=== PATIENT | male | born 1975 | race Caucasian/White ===

== ENCOUNTER 2021-09-20 09:33 | Inpatient (IN) | payer SELFPAY ==
[2021-09-20] MEDS ORDERED: Sodium Chloride 0.9% 10 ML Syringe FLUSH PRN (10:10)
[2021-09-20] MEDS ORDERED: ceFAZolin 2 GM in Sodium Chloride 0.9% 50 ML IV ONE (10:12)
[2021-09-20] MEDS ORDERED: HYDROmorphone 0.5 MG/0.5 ML Syringe IVPUSH ONE ×2 (10:15→12:03)
[2021-09-20] MEDS ORDERED: Vancomycin 2 GM in Sodium Chloride 0.9% 500 ML IV ONE (10:43)
[2021-09-20] MEDS ORDERED: Acetaminophen 325 MG Tab PO PRN (13:41)
[2021-09-20] MEDS ORDERED: Polyethylene Glycol 3350 Powder 17 GM Packet PO PRN (13:41)
[2021-09-20] MEDS ORDERED: Ondansetron 4 MG/2 ML SDV IV PRN (13:41)
[2021-09-20] MEDS ORDERED: Nicotine Polacrilex 2 MG Gum CHEW PRN (13:43)
[2021-09-20] MEDS: Heparin Sodium 5,000 Units/ML Vial SUBCUT SCH ×2 (14:08→21:44)
[2021-09-20] MEDS: oxyCODONE 5 MG Tab PO PRN ×2 (14:08→21:46)
[2021-09-20] MEDS: NS + KCl 20mEq/L 1,000 ML IV SCH (14:10)
[2021-09-20] MEDS: Nicotine 14 MG/24 Hr Patch TRDERM SCH (14:16)
[2021-09-20] MEDS: Acetaminophen 325 MG Tab PO SCH ×2 (15:50→21:47)
[2021-09-20] MEDS ORDERED: Vancomycin 1 GM, Vancomycin 500 MG in Sodium Chloride 0.9% 500 ML IV SCH (22:00)
[2021-09-21] MEDS: NS + KCl 20mEq/L 1,000 ML IV SCH (04:25)
[2021-09-21] MEDS: oxyCODONE 5 MG Tab PO PRN ×2 (04:31→21:48)
[2021-09-21] MEDS: Heparin Sodium 5,000 Units/ML Vial SUBCUT SCH ×4 (04:32→21:41)
[2021-09-21] MEDS: Nicotine 14 MG/24 Hr Patch TRDERM SCH (09:39)
[2021-09-21] MEDS: Acetaminophen 325 MG Tab PO SCH ×3 (09:39→21:40)
[2021-09-21] MEDS ORDERED: Aluminum Hydroxide/Magnesium Hydroxide/Simethicone Susp 30 ML Cup PO ONE (12:50)
[2021-09-21] MEDS ORDERED: Vancomycin 1 GM, Vancomycin 500 MG in Sodium Chloride 0.9% 500 ML IV SCH (22:00)
[2021-09-22] MEDS: Heparin Sodium 5,000 Units/ML Vial SUBCUT SCH ×3 (05:26→22:07)
[2021-09-22 06:18] LABS: ESTIMATED GFR > 60 mL/min (>60)
[2021-09-22] MEDS: Acetaminophen 325 MG Tab PO SCH ×3 (08:05→22:05)
[2021-09-22] MEDS: Nicotine 14 MG/24 Hr Patch TRDERM SCH (08:05)
[2021-09-22] MEDS: oxyCODONE 5 MG Tab PO PRN ×2 (08:15→22:04)
[2021-09-22] MEDS ORDERED: Vancomycin 1 GM, Vancomycin 500 MG in Sodium Chloride 0.9% 500 ML IV ONE (21:45)
[2021-09-22] MEDS ORDERED: Vancomycin 250 MG in Sodium Chloride 0.9% 100 ML IV ONE (23:00)
[2021-09-23 06:30] LABS: ESTIMATED GFR > 60 mL/min (>60)
[2021-09-23] MEDS: Heparin Sodium 5,000 Units/ML Vial SUBCUT SCH (06:33)
[2021-09-23] MEDS: Acetaminophen 325 MG Tab PO SCH (08:52)
[2021-09-23] MEDS: Nicotine 14 MG/24 Hr Patch TRDERM SCH (08:53)
[2021-09-23] MEDS ORDERED: Vancomycin 1.75 GM in Sodium Chloride 0.9% 500 ML IV SCH (22:00)
== END 2021-09-23 12:40 | disposition home or self-care (01) | DRG 603 ==
LOC: JD.ED 09:33 → JD.MS 13:37
PROVIDERS: ADMIT Emergency Medicine; ATTEND Internal Medicine
DX: L03.116 Cellulitis of left lower limb (principal); N17.9 Acute kidney failure, unspecified; N18.9 Chronic kidney disease, unspecified; F41.9 Anxiety disorder, unspecified; F17.210 Nicotine dependence, cigarettes, uncomplicated; Z71.6 Tobacco abuse counseling; Z86.14 Personal history of Methicillin resistant Staphylococcus aureus infection
CPT/HCPCS: 36415; 80048; 80053; 80202; 83605; 85025; 85027; 86140; 87040; 93971-26-LT; 93971-LT; 96365; 96366; 96375; 96376; 99285-25; A9270-GY; J1170; J1644; J3370; J3480; J3490; J7040

== ENCOUNTER 2021-09-25 14:55 | Emergency (ER) | payer SELFPAY ==
[2021-09-25] MEDS ORDERED: Sodium Chloride 0.9% 10 ML Syringe FLUSH PRN (16:00)
[2021-09-25] MEDS ORDERED: Ketorolac 30 MG/ML SDV IVPUSH ONE (16:01)
[2021-09-25] MEDS ORDERED: Potassium Chloride 20 MEQ Tab.ER PO ONE (16:53)
== END 2021-09-25 17:15 | disposition home or self-care (01) ==
LOC: JD.ED 14:55
DX: L03.116 Cellulitis of left lower limb (principal); I10 Essential (primary) hypertension; F17.210 Nicotine dependence, cigarettes, uncomplicated
CPT/HCPCS: 36415; 80053; 85025; 86140; 96374; 99283; A9270; J1885; J3490